=== PATIENT | female | born 1985 | race Caucasian/White ===

== ENCOUNTER 2018-11-24 08:39 | Emergency (ER) | payer BC, OTHER ==
[2018-11-24 08:54] VITALS: BP 118/84
--- NOTE | 2018-11-24 09:25 | UC ---
Ear Complaint HPI - HPI Summary HPI Summary: Patient presents to urgent care stating that her ears feel plugged with wax. Patient states left is worse in the right. Patient has had this before need to have them flushed. Patient is negative for the summer normally resides. Patient without any other complaints. no fever, chills, nasal congestion. Patient has never had tubes in ears or ear surgery. medications reviewed this visit - History of Current Complaint Chief Complaint: UCEar Stated Complaint: EAR CLOGGED Time Seen by Provider: 11/24/18 09:16 Hx Obtained From: Patient Pain Intensity: 2 - Allergies/Home Medications Allergies/Adverse Reactions: Allergies Allergy/AdvReac Type Severity Reaction Status Date / Time No Known Allergies Allergy Verified 11/24/18 08:54 Home Medications: Home Medications Melatonin 5 mg PO 11/24/18 [History] PMH/Surg Hx/FS Hx/Imm Hx Previously Healthy: Yes - Surgical History Surgical History: None - Social History Occupation: Employed Full-time Lives: With Family Alcohol Use: Weekly Substance Use Type: None Smoking Status (MU): Never Smoked Tobacco Review of Systems All Other Systems Reviewed And Are Negative: Yes Constitutional: Positive: Negative Skin: Positive: Negative ENT: Positive: Other - cerumen impaction Physical Exam - Summary Physical Exam Summary: Vital Signs Reviewed: Yes A+Ox3, no distress Eyes: Conjunctiva Clear ENT: Hearing grossly normal b/l cerumen impaction - able to remove small amount on left - will irrigation mmoist no exudate neck: supple Respiratory: Positive: No respiratory distress, No accessory muscle use Cardiovascular: skin color reflect adequate perfusion Musculoskeletal Exam: STORM x 4 without difficulty Neurological: Positive: Alert, ambulatory without difficulty Psychological: Positive: Normal Response To Family Skin: Positive: no rash, no ecchymosis Triage Information Reviewed: Yes Vital Signs: Initial Vital Signs Temp 98.0 F 11/24/18 08:51 Pulse 65 11/24/18 08:51 Resp 18 11/24/18 08:51 BP 118/84 11/24/18 08:51 Pulse Ox 99 11/24/18 08:51 Re-Evaluation - Re-Evaluation First Eval Re-Evaluation Time: 09:48 Change: Improved Comment: Able to visualize bilateral TM. No erythema, fluid. pt states feels well. will discharge Ear Complaint Course/Dx - Course Course Of Treatment: pt presents with bilateral cerumen impaction. No complaints no pain. On exam vital signs are stable. Patient does have cerumen in both ears. Able to remove a little bit from the left ear manually. We'll irrigate reassess Patient comfortable in agreement with plan. - Differential Dx/Diagnosis Provider Diagnosis: Impacted cerumen of both ears Discharge - Sign-Out/Discharge Documenting (check all that apply): Patient Departure All imaging exams completed and their final reports reviewed: No Studies - Discharge Plan Condition: Stable Disposition: HOME Patient Education Materials: Cerumen Impaction (ED) Referrals: No Primary Care Phys,NOPCP [Primary Care Provider] - - Billing Disposition and Condition Condition: STABLE Disposition: Home
== END 2018-11-24 09:51 | disposition home or self-care (01) ==
LOC: UCEAST 08:39
DX: H61.23 Impacted cerumen, bilateral (principal)
CPT/HCPCS: 99203; G0463